=== PATIENT | male | born 1985 | race Caucasian/White ===

== ENCOUNTER 2016-12-21 05:20 | Emergency (ER) | payer BC ==
--- NOTE | 2016-12-21 05:29 | ERPHSYRPT ---
- History of Present Illness Time Seen by Provider: 12/21/16 05:23 Source: patient Physician History: Pt. with chronic back/knee pain, but awakened with L side back pain. States pain 8/10 and unable to get comfortable. Drove self to hospital. Denies frequency but states had dysuria. Last week had vomiting/diarrhea and "sinus problems." States injured back from bending and have been lying on couch past couple days. No fever, chills, or vomiting recently. Timing/Duration: today Method of Injury: bending Quality: sharp Back Pain Location: lumbar spine Back Pain Radiation: upper legs (in front) Severity of Pain-Max: moderate Severity of Pain-Current: moderate Modifying Factors: Improves With: rest (improve) Associated Symptoms: No fever, No urinary incontinence, No nausea, No problems urinating Previous symptoms: different symptoms Allergies/Adverse Reactions: No Known Drug Allergies Allergy (Verified 07/07/16 14:14) Home Medications: Diclofenac Sodium [Diclofenac Sodium ER] 75 mg PO UD 07/07/16 [History] Gabapentin [Neurontin] 300 mg PO UD 07/07/16 [History] Tramadol HCl 50 mg [Ultram 50 mg] 50 mg PO UD 07/07/16 [History] Hx Tetanus, Diphtheria Vaccination/Date Given: No Hx Influenza Vaccination/Date Given: No Hx Pneumococcal Vaccination/Date Given: No - Review of Systems Constitutional: No Fever, No Chills Eyes: No Symptoms Ears, Nose, & Throat: No Symptoms Respiratory: No Cough, No Dyspnea Cardiac: No Chest Pain, No Edema, No Syncope Abdominal/Gastrointestinal: No Abdominal Pain, No Nausea, No Vomiting, No Diarrhea Genitourinary Symptoms: No Dysuria Musculoskeletal: Back Pain, No Neck Pain Skin: No Rash Neurological: No Dizziness, No Focal Weakness, No Sensory Changes Psychological: No Symptoms Endocrine: No Symptoms All Other Systems: Reviewed and Negative - Past Medical History Pertinent Past Medical History: Yes Musculoskeletal History: Other Psycho-Social History: Anxiety Other Medical History: Back Pain - Past Surgical History Past Surgical History: Yes Gastrointestinal: Appendectomy Musculoskeletal: Orthopedic Surgery Other Surgical History: Kyphoplasty 3 yrs ago. - Social History Smoking Status: Former smoker Exposure to second hand smoke: No Drug Use: none Patient Lives Alone: No - Physical Exam General Appearance: mild distress Eye Exam: PERRL/EOMI, eyes nml inspection Neck Exam: normal inspection, non-tender, supple, full range of motion, No meningismus, No midline tenderness Respiratory Exam: normal breath sounds, lungs clear, No respiratory distress Cardiovascular Exam: regular rate/rhythm, normal heart sounds Gastrointestinal Exam: soft, No tenderness, No mass Back Exam: normal inspection, point tenderness (mid L-spine area) Extremity Exam: normal inspection, normal range of motion, No calf tenderness, No pedal edema Peripheral Pulses: dorsalis-pedis (R): 2+, dorsalis-pedis (L): 2+ Neurologic Exam: alert, oriented x 3, cooperative, 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 as tested, normal mood/affect, nml station & gait, sensation nml, No motor deficits Skin Exam: normal color, warm, dry, No rash Oxygen Delivery: Room Air - Course Nursing assessment & vital signs reviewed: Yes - Radiology Exams L-Spine X-ray Interpretation: Interpreted by me, No Fracture, Other (Kyphoplasty material in T-spine) - CT Exams Abdomen/Pelvis CT Interpretation: Tele-radiologist Report, Other (2 mm L distal UVJ kidney stone) Ordered Tests: Active Orders 24 hr Category Date Time Status Clean Catch Urine Specimen STAT Care 12/21/16 05:53 Active IV Insertion STAT Care 12/21/16 05:56 Active ABDOMEN AND PELVIS W/0 CONTRAS [CT] Stat Exams 12/21/16 06:05 Taken LUMBAR LIMITED (2 OR 3 VIEWS) Stat Exams 12/21/16 05:36 Taken BMP Stat Lab 12/21/16 05:30 Completed CBC W DIFF Stat Lab 12/21/16 05:30 Completed UA W/ MICROSCOPIC Stat Lab 12/21/16 05:53 Completed Urine Triage Profile Stat Lab 12/21/16 05:53 Completed Medication Summary Discontinued Medications Generic Name Dose Route Start Last Admin Trade Name Freq PRN Reason Stop Dose Admin Sodium Chloride 1,000 mls @ 999 mls/hr 12/21/16 05:39 12/21/16 05:42 Sodium Chloride 0.9% 1000 Ml IV 12/21/16 06:39 999 mls/hr .Q1H1M STA Administration Sodium Chloride Confirm 12/21/16 05:40 Sodium Chloride 0.9% 1000 Ml Administered 12/21/16 05:41 Dose 1,000 mls @ ud .ROUTE .STK-MED ONE Ketorolac Tromethamine 30 mg 12/21/16 05:35 12/21/16 05:45 Toradol 30 Mg Injection IV 12/21/16 05:36 30 mg STAT ONE Administration Ketorolac Tromethamine Confirm 12/21/16 05:40 Toradol 30 Mg Injection Administered 12/21/16 05:41 Dose 30 mg .ROUTE .STK-MED ONE Morphine Sulfate 2 mg 12/21/16 05:35 12/21/16 05:42 Morphine Sulfate 2 Mg Inj IV 12/21/16 05:36 2 mg STAT ONE Administration Morphine Sulfate Confirm 12/21/16 05:40 Morphine Sulfate 2 Mg Inj Administered 12/21/16 05:41 Dose 2 mg .ROUTE .STK-MED ONE Morphine Sulfate 2 mg 12/21/16 07:02 Morphine Sulfate 2 Mg Inj IV 12/21/16 07:03 STAT ONE Promethazine HCl 12.5 mg 12/21/16 05:38 12/21/16 05:45 Phenergan 25 Mg Inj IV 12/21/16 05:39 12.5 mg STAT ONE Administration Promethazine HCl Confirm 12/21/16 05:40 Phenergan 25 Mg Inj Administered 12/21/16 05:41 Dose 25 mg .ROUTE .STK-MED ONE Lab/Rad Data: Laboratory Result Diagrams 12/21/16 05:30 12/21/16 05:30 Laboratory Results 12/21/16 12/21/16 12/21/16 Range/Units 05:53 05:53 05:30 WBC (4.0-10.5) K/mm3 RBC (4.1-5.6) M/mm3 Hgb (12.5-18.0) gm/dl Hct (42-50) % MCV (78-100) fl MCH (26-32) pg MCHC (32-36) g/dl RDW (11.5-14.0) % Plt Count (150-450) K/mm3 MPV (6-9.5) fl Gran % (36.0-66.0) % Lymphocytes % (24.0-44.0) % Monocytes % (0.0-12.0) % Eosinophils % (0.00-5.0) % Basophils % (0.0-0.4) % Basophils # (0-0.4) Sodium 141 (136-145) mEq/L Potassium 4.2 (3.5-5.1) mEq/L Chloride 101 (98-107) mEq/L Carbon Dioxide 29.7 (21-32) mEq/L Anion Gap 14.9 (5-15) MEQ/L BUN 16 (9-20) mg/dL Creatinine 1.25 (0.55-1.30) mg/dl Estimated GFR > 60 ML/MIN Glucose 88 (70-110) MG/DL Calcium 9.4 (8.5-10.1) mg/dL Ur Collection Type CLEAN CATCH Urine Color YELLOW (YELLOW) Urine Appearance CLEAR (CLEAR) Urine pH 8.5 (5-6) Ur Specific [place] 1.020 (1.005-1.025) Urine Protein NEGATIVE (Negative) Urine Glucose (UA) NEGATIVE (NEGATIVE) mg/dL Urine Ketones NEGATIVE (NEGATIVE) Urine Nitrite NEGATIVE (NEGATIVE) Urine Bilirubin NEGATIVE (NEGATIVE) Urine Urobilinogen 2 (0-1) mg/dL Urine WBC (Auto) NEGATIVE (NEGATIVE) Urine RBC (Auto) NEGATIVE (0-5) Hay/ul Urine Opiates Level NEG. (NEGATIVE) Ur Methadone NEG. (NEGATIVE) Urine Barbiturates NEG. (NEGATIVE) Ur Phencyclidine (PCP) NEG. (NEGATIVE) Urine Amphetamine NEG. (NEGATIVE) U Benzodiazepine Level NEG. (NEGATIVE) Urine Cocaine NEG. (NEGATIVE) Urine Marijuana (THC) NEG. (NEGATIVE) Specimen Received [id number] 12/21/16 Range/Units 05:30 WBC 7.2 (4.0-10.5) K/mm3 RBC 5.33 (4.1-5.6) M/mm3 Hgb 15.7 (12.5-18.0) gm/dl Hct 46.9 (42-50) % MCV 88.0 (78-100) fl MCH 29.5 (26-32) pg MCHC 33.5 (32-36) g/dl RDW 13.1 (11.5-14.0) % Plt Count 258 (150-450) K/mm3 MPV 9.8 H (6-9.5) fl Gran % 43.9 (36.0-66.0) % Lymphocytes % 48.0 H (24.0-44.0) % Monocytes % 6.7 (0.0-12.0) % Eosinophils % 1.1 (0.00-5.0) % Basophils % 0.3 (0.0-0.4) % Basophils # 0.02 (0-0.4) Sodium (136-145) mEq/L Potassium (3.5-5.1) mEq/L Chloride (98-107) mEq/L Carbon Dioxide (21-32) mEq/L Anion Gap (5-15) MEQ/L BUN (9-20) mg/dL Creatinine (0.55-1.30) mg/dl Estimated GFR ML/MIN Glucose (70-110) MG/DL Calcium (8.5-10.1) mg/dL Ur Collection Type Urine Color (YELLOW) Urine Appearance (CLEAR) Urine pH (5-6) Ur Specific [place] (1.005-1.025) Urine Protein (Negative) Urine Glucose (UA) (NEGATIVE) mg/dL Urine Ketones (NEGATIVE) Urine Nitrite (NEGATIVE) Urine Bilirubin (NEGATIVE) Urine Urobilinogen (0-1) mg/dL Urine WBC (Auto) (NEGATIVE) Urine RBC (Auto) (0-5) Hay/ul Urine Opiates Level (NEGATIVE) Ur Methadone (NEGATIVE) Urine Barbiturates (NEGATIVE) Ur Phencyclidine (PCP) (NEGATIVE) Urine Amphetamine (NEGATIVE) U Benzodiazepine Level (NEGATIVE) Urine Cocaine (NEGATIVE) Urine Marijuana (THC) (NEGATIVE) Specimen Received - Progress Progress: improved Progress Note: patient was given IV fluids along with morphine, Phenergan for pain with some relief of his symptoms. States pain is now 5 out of 10 and more comfortable. 12/21/16 06:08 patient with 2 mm left UVJ kidney stone with some hydronephrosis. Patient is resting comfortably and sleeping at this time. 12/21/16 07:04 Counseled pt/family regarding: lab results, diagnosis, rad results - Departure Time of Disposition: 07:06 Departure Disposition: Home Clinical Impression: Kidney stone on left side Condition: Stable Critical Care Time: No Instructions: Kidney Stones Additional Instructions: drink plenty of fluids RX: Toradol, Phenergan hold Diclofenac while taking Toradol Return for worse pain, vomiting, or any problems Prescriptions: Ketorolac Tromethamine [Toradol] 10 mg PO Q6-8HPRN PRN #12 tablet PRN Reason: Pain Promethazine HCl 25 mg [Phenergan 25 mg] 25 mg PO Q6-8HPRN PRN #20 tablet PRN Reason: Nausea
[2016-12-21] MEDS ORDERED: MORPHINE SULFATE 2 MG INJ IV ONE ×2 (05:35→07:02)
[2016-12-21] MEDS ORDERED: TORAdol 30 mg Injection IV ONE (05:35)
[2016-12-21] MEDS ORDERED: Phenergan 25 MG INJ IV ONE (05:38)
[2016-12-21] MEDS ORDERED: Sodium Chloride 0.9% 1000 ML 1,000 ML IV STA (05:39)
[2016-12-21] MEDS ORDERED: Phenergan 25 MG INJ ONE (05:40)
[2016-12-21] MEDS ORDERED: MORPHINE SULFATE 2 MG INJ ONE ×2 (05:40→07:07)
[2016-12-21] MEDS ORDERED: Sodium Chloride 0.9% 1000 ML 1,000 ML ONE (05:40)
[2016-12-21] MEDS ORDERED: TORAdol 30 mg Injection ONE (05:40)
[2016-12-21 05:53] LABS: ANION GAP 14.9 MEQ/L (5-15); BLOOD UREA NITROGEN 16 mg/dL (9-20); CHLORIDE 101 mEq/L (98-107); Carbon Dioxide 29.7 mEq/L (21-32); Glucose 88 MG/DL (70-110); Potassium 4.2 mEq/L (3.5-5.1); SODIUM 141 mEq/L (136-145)
[2016-12-21 05:54] LABS: BASOPHIL % 0.3 % (0.0-0.4); Eosinophil % 1.1 % (0.00-5.0); Granulocytes % 43.9 % (36.0-66.0); Mean Corpuscular Hemoglobin 29.5 pg (26-32); Mean Platelet Volume 9.8 fl (6-9.5); Monocytes % 6.7 % (0.0-12.0); Platelet Count 258 K/mm3 (150-450); Red Blood Count 5.33 M/mm3 (4.1-5.6); Red Cell Distribution Width 13.1 % (11.5-14.0); White Blood Count 7.2 K/mm3 (4.0-10.5)
[2016-12-21 05:55] LABS: Collection Type CLEAN CATCH; Ph 8.5 (5-6)
[2016-12-21 05:56] LABS: COMPLETE URINE MICROSCOPIC? NO
[2016-12-21 07:34] VITALS: BP 118/74; PULSE 61; O2SAT 99
--- NOTE | 2016-12-21 09:34 | XRAY ---
Indication: Back and flank pain. Comparison: August 30, 2007 2 views of the lumbar spine again demonstrates 5 lumbar vertebral segments with bilateral L5 spondylolysis with minimal grade 1 spondylolisthesis. New minimal L5-S1 disc space narrowing and interval T11 vertebroplasty. No other bony, articular, or soft tissue abnormalities.
--- NOTE | 2016-12-21 09:41 | XRAY ---
Indication: Left flank pain. Multiple contiguous axial images obtained through the abdomen and pelvis without contrast as ordered. Comparison: October 19, 2014 Lung bases are essentially clear. Heart is not enlarged. There is now a 2-3 mm left UVJ calculus. Proximal left ureter slightly prominent with mild hydronephrosis consistent with partial obstruction. No perinephric fluid. Noncontrasted stomach and bowel loops appear nonobstructed. Again previous appendectomy. No free fluid/air. Remaining liver, gallbladder, pancreas, spleen, adrenal glands, kidneys, ureters, bladder, and aorta appear unremarkable for noncontrast exam. Osseous structures intact again with previous T11 kyphoplasty and bilateral L5 spondylolysis with minimal grade 1 spondylolisthesis. Impression: 2-3 mm left UVJ calculus producing partial obstruction. Stable T11 kyphoplasty and bilateral L5 spondylolysis with minimal spondylolisthesis. Comment: Preliminary interpretation was made by [facility]. No critical discrepancy. CTDI 14.11
== END 2016-12-21 08:31 | disposition home or self-care (01) ==
LOC: ED 05:20
DX: N13.2 Hydronephrosis with renal and ureteral calculous obstruction (principal); M54.5 Low back pain
CPT/HCPCS: 36000; 36415; 72100; 74176; 80048; 80307; 81000; 85025; 96360; 96374; 96376; 99283; 99284; J1885; J2270; J2550